=== PATIENT | female | born 1945 | race American Indian/Alaskan Native ===

== ENCOUNTER → 2024-08-01 | Outpatient (CLI) | payer MEDICARE, MEDICAID, SELFPAY ==
--- NOTE | 2024-08-01 13:10 | XR_ITS ---
Examination: Ribs, left, with PA chest, 5 views Technique: Chest PA, RIBS AP, RPO, LPO, AP coned lower ribs 5 views Exam date and time: August 01, 2024 1412 hours INDICATIONS: Patient fell July 23, 2024 with injury to the left chest, left rib pain Findings: Heart size Thorax Moderate osteopenia No acute rib fractures IMPRESSION: No pneumothorax pulmonary contusion or hemothorax No acute left rib fractures
--- NOTE | 2024-08-01 13:10 | XR_ITS ---
Examination: PA lateral chest 2 views TECHNIQUE: Upright PA lateral chest 2 views Exam date and time: August 01, 2024 1415 hours INDICATIONS: Chest pain after falling July 23, 2024 FINDINGS: Normal heart size No pneumothorax or pulmonary contusion Prominent osteopenia Clavicles ribs appear intact as well as thoracic vertebral bodies IMPRESSION: No pneumothorax pulmonary contusion or hemothorax
== END | disposition home or self-care (01) ==
LOC: CDIM 13:01
PROVIDERS: PCP Nurse Practitioner Family; Referring Provider Nurse Practitioner Family; Visit Provider Nurse Practitioner Family
DX: S29.9XXA Unspecified injury of thorax, initial encounter (principal); W19.XXXA Unspecified fall, initial encounter
CPT/HCPCS: 71046; 71101

== ENCOUNTER → 2025-01-15 | Outpatient (CLI) | payer MEDICARE, MEDICAID, SELFPAY ==
--- NOTE | 2025-01-15 | XR_ITS ---
Examination: PA lateral chest 2 views TECHNIQUE: Upright PA and lateral chest 2 views Exam date and time: January 15, 2025, 0722 hours INDICATIONS: Shortness of breath 3 weeks FINDINGS: Significant hyperexpansion. Normal heart size Accentuation of basilar bronchovascular markings. Prominent osteopenia IMPRESSION: COPD Basilar bronchitis
== END | disposition home or self-care (01) ==
LOC: CDIM 06:47
PROVIDERS: PCP Nurse Practitioner Family
DX: J44.9 Chronic obstructive pulmonary disease, unspecified (principal)
CPT/HCPCS: 71046